=== PATIENT | female | born 1935 | race Two or more races ===

== ENCOUNTER 2017-08-02 10:39 | Inpatient (IN) | payer MEDICARE, BC ==
[2017-08-02] MEDS: VANCOMYCIN 1 GM (PMX) 250 ML IVPB (12:22)
[2017-08-02] MEDS: SODIUM CHLORIDE 0.9% 1L BAG IV* (13:28)
[2017-08-02] MEDS: morphine 2 MG INJ IV (13:28)
[2017-08-02] MEDS: PIPER-TAZO 3.375 GM IV (PMX) 50 ML IVPB (13:28)
[2017-08-02] MEDS: ONDANSETRON 4 MG INJ IV ×2 (13:28→14:32)
[2017-08-02 13:30] LABS: ADD MAN DIFF? NO
[2017-08-02 13:33] LABS: ADD UMIC YES; UR ASCORBIC ACID NEGATIVE (NEGATIVE); UR BACTERIA FEW /HPF (NONE SEEN); UR BILIRUBIN (Dip) NEGATIVE (NEGATIVE); UR BLOOD (Dip) 1+ mg/dL (NEGATIVE); UR CLARITY SLIGHTLY CLOUDY (CLEAR); UR COLOR YELLOW (YELLOW); UR GLUCOSE (Dip) NEGATIVE (NEGATIVE); UR KETONES (Dip) NEGATIVE (NEGATIVE); UR LEUKOCYTE ESTERASE (Dip) NEGATIVE Leu/ul (NEGATIVE); UR NITRITE (Dip) NEGATIVE (NEGATIVE); UR RBC 3 /HPF (0-5); UR SPECIFIC GRAVITY (Dip) 1.012 (1.003-1.030); UR TOTAL PROTEIN (Dip) 3+ mg/dl (NEGATIVE); UR UROBILINOGEN (Dip) NEGATIVE (NEGATIVE); UR WBC 2 /HPF (0-5)
[2017-08-02 13:36] LABS: BASOPHILS % 0.3 % (0.0-2.0); EOSINOPHILS # 0.1 10^3/ul (0.0-0.5); EOSINOPHILS % 0.5 % (0.0-7.0); HEMATOCRIT 24.5 % (37.0-47.0); HEMOGLOBIN 7.6 g/dl (12.0-16.0); LYMPHOCYTES # 0.7 10^3/ul (0.8-2.9); LYMPHOCYTES % 6.5 % (15.0-51.0); MEAN CORPUSCULAR HEMOGLOBIN 21.3 pg (29.0-33.0); MEAN CORPUSCULAR VOLUME 68.8 fl (82.0-101.0); MEAN PLATELET VOLUME 10.1 fl (7.4-10.4); MONOCYTE # 0.7 10^3/ul (0.3-0.9); MONOCYTES % 7.1 % (0.0-11.0); NEUTROPHIL # 8.7 10^3/ul (1.6-7.5); NEUTROPHILS % 84.8 % (39.0-77.0); PLATELET COUNT 179 10^3/UL (140-415); RED BLOOD COUNT 3.56 10^6/ul (4.20-5.40); RED CELL DISTRIBUTION WIDTH 14.8 % (11.5-14.5)
[2017-08-02 13:36] LABS: WHITE BLOOD COUNT 10.2 10^3/ul (4.8-10.8)
[2017-08-02 13:53] LABS: LACTIC ACID 1.2 mmol/L (0.5-2.0)
[2017-08-02 13:55] LABS: ALANINE AMINOTRANSFERASE 46 IU/L (13-69); ALBUMIN 3.4 g/dl (3.3-4.9); ALBUMIN/GLOBULIN RATIO 0.91; ALKALINE PHOSPHATASE 195 IU/L (42-121); AMYLASE 76 U/L (11-123); ANION GAP 13 (8-16); ASPARTATE AMINO TRANSFERASE 30 IU/L (15-46); BILIRUBIN,INDIRECT 0.3 mg/dl (0-1.1); BILIRUBIN,TOTAL 0.3 mg/dl (0.2-1.3); BLOOD UREA NITROGEN 37 mg/dl (7-20); CALCIUM 9.2 mg/dl (8.4-10.2); CARBON DIOXIDE 22 mmol/L (21-31); CHLORIDE 107 mmol/L (97-110); CREATININE 1.73 mg/dl (0.44-1.00); GLUCOSE 143 mg/dl (70-220); LIPASE 157 U/L (23-300); POTASSIUM 4.1 mmol/L (3.5-5.1); SODIUM 138 mmol/L (135-144); TOTAL PROTEIN 7.1 g/dl (6.1-8.1)
[2017-08-02 14:06] LABS: TROPONIN-I 0.035 ng/ml (0.00-0.12)
[2017-08-02] MEDS: SOD CHLORIDE 0.9% 1,000 ML IV (14:12)
[2017-08-02] MEDS ORDERED: SOD CHLORIDE 0.9% 100 ML (14:13)
[2017-08-02] MEDS ORDERED: IODIXANOL LOCM 100 ML BTL (14:13)
[2017-08-02] MEDS: HYDROmorphONE 1 MG/ML SYG IV (14:32)
[2017-08-02 14:45] LABS: IRON < 10 ug/dl (35-150)
[2017-08-02 14:54] LABS: TOTAL IRON BINDING CAPACITY 240 ug/dl (241-421)
[2017-08-02] MEDS ORDERED: ACETAMINOPHEN 325 MG TAB PO (16:00)
[2017-08-02] MEDS ORDERED: ONDANSETRON 4 MG INJ IV ×2 (16:00→17:00)
[2017-08-02] MEDS: AMLODIPINE 5 MG TAB PO (16:30)
[2017-08-02] MEDS ORDERED: VANCOMYCIN IV PER PHARMACY XX (17:00)
[2017-08-02] MEDS: LORAZEPAM 2 MG INJ IV (17:06)
[2017-08-02 17:45] LABS: IMMEDIATE SPIN CROSSMATCH 1 2
[2017-08-02] MEDS: FUROSEMIDE 20 MG INJ IV (20:31)
[2017-08-02] MEDS: hydrALAzine 20 MG INJ IV (21:19)
[2017-08-02] MEDS ORDERED: hydrALAzine 20 MG INJ IV (21:30)
[2017-08-03] MEDS: ATORVASTATIN 20 MG TAB PO ×2 (00:34→21:20)
[2017-08-03] MEDS: SOD CHLORIDE 0.9% 1,000 ML IV (00:56)
[2017-08-03] MEDS: AMPICILLIN/SULB 1.5GM/NS (PMX) 50 ML IVPB ×3 (01:01→21:21)
[2017-08-03] MEDS: hydrALAzine 20 MG INJ IV ×3 (03:32→21:29)
[2017-08-03] MEDS ORDERED: CEFAZOLIN 1 GM INJ (07:26)
[2017-08-03] MEDS: PANTOPRAZOLE (EC) 40 MG TAB PO (07:30)
[2017-08-03] MEDS: AMLODIPINE 5 MG TAB PO ×3 (08:18→21:26)
[2017-08-03] MEDS: EZETIMIBE 10 MG TAB PO (08:18)
[2017-08-03] MEDS: ASPIRIN (EC) 81 MG TAB PO ×2 (08:18→12:03)
[2017-08-03 08:42] LABS: ADD MAN DIFF? NO
[2017-08-03 08:54] LABS: BASOPHIL # 0.1 10^3/ul (0.0-0.1); BASOPHILS % 0.5 % (0.0-2.0); EOSINOPHILS # 0.1 10^3/ul (0.0-0.5); HEMATOCRIT 27.5 % (37.0-47.0); HEMOGLOBIN 8.7 g/dl (12.0-16.0); LYMPHOCYTES # 0.7 10^3/ul (0.8-2.9); LYMPHOCYTES % 6.9 % (15.0-51.0); MEAN CORPUSCULAR HEMOGLOBIN 22.4 pg (29.0-33.0); MEAN CORPUSCULAR HGB CONC 31.6 g/dl (32.0-37.0); MEAN CORPUSCULAR VOLUME 70.9 fl (82.0-101.0); MEAN PLATELET VOLUME 10.3 fl (7.4-10.4); MONOCYTE # 0.6 10^3/ul (0.3-0.9); MONOCYTES % 6.5 % (0.0-11.0); NEUTROPHIL # 8.4 10^3/ul (1.6-7.5); NEUTROPHILS % 84.3 % (39.0-77.0); PLATELET COUNT 184 10^3/UL (140-415); RED BLOOD COUNT 3.88 10^6/ul (4.20-5.40); RED CELL DISTRIBUTION WIDTH 15.9 % (11.5-14.5)
[2017-08-03 08:54] LABS: WHITE BLOOD COUNT 9.9 10^3/ul (4.8-10.8)
[2017-08-03] MEDS ORDERED: FUROSEMIDE 20 MG TAB PO (09:00)
[2017-08-03] MEDS ORDERED: HEPARIN 1000 UNITS/ML 10 ML INJ (09:06)
[2017-08-03] MEDS ORDERED: GELATIN SIZE 100 SPONGE (09:06)
[2017-08-03] MEDS ORDERED: THROMBIN 5000 UNIT VIAL (09:06)
[2017-08-03 09:14] LABS: ANION GAP 13 (8-16); BLOOD UREA NITROGEN 32 mg/dl (7-20); CALCIUM 8.9 mg/dl (8.4-10.2); CARBON DIOXIDE 20 mmol/L (21-31); CHLORIDE 113 mmol/L (97-110); CREATININE 1.64 mg/dl (0.44-1.00); GLUCOSE 100 mg/dl (70-220); MAGNESIUM 1.7 mg/dl (1.7-2.5); POTASSIUM 4.1 mmol/L (3.5-5.1); SODIUM 142 mmol/L (135-144)
[2017-08-03] MEDS ORDERED: MIDAZOLAM 1 MG/ML 2 ML INJ (10:07)
[2017-08-03] MEDS ORDERED: ROCURONIUM 50 MG INJ (10:07)
[2017-08-03] MEDS ORDERED: NEOSTIGMINE 3 MG/3 ML SYRINGE (10:07)
[2017-08-03] MEDS ORDERED: GLYCOPYRROLATE 0.4 MG INJ (10:07)
[2017-08-03] MEDS ORDERED: FENTAnyl 50 MCG/ML VIAL (10:07)
[2017-08-03] MEDS: VANCOMYCIN 1 GM INJ (10:44)
[2017-08-03] MEDS: LIDOCAINE 1% (MPF) 30 ML INJ (10:44)
[2017-08-03] MEDS: BUPIVACAINE 0.5% (SDV) 30 ML INJ (10:44)
[2017-08-03] MEDS ORDERED: ONDANSETRON 4 MG INJ IV (11:30)
[2017-08-03] MEDS ORDERED: DIPHENHYDRAMINE 50 MG INJ IV (11:30)
[2017-08-03] MEDS ORDERED: hydrALAzine 20 MG INJ IV (11:30)
[2017-08-03] MEDS ORDERED: morphine (1 MG/ML) 10ML SYRINGE IV ×3 (11:30)
[2017-08-03] MEDS ORDERED: MEPERIDINE 25 MG INJ IV (11:30)
[2017-08-03] MEDS ORDERED: LABETALOL HCL 20MG INJ IV (11:30)
[2017-08-03] MEDS ORDERED: FENTAnyl 50 MCG/ML VIAL IV ×2 (11:30)
[2017-08-03] MEDS ORDERED: ATROPINE 1 MG/10 ML SYRINGE IV (11:30)
[2017-08-03] MEDS ORDERED: MIDAZOLAM 1 MG/ML 2 ML INJ IV (11:30)
[2017-08-03] MEDS ORDERED: HYDROmorphONE (0.2 MG/ML) 10ML SYG IV ×3 (11:30)
[2017-08-03] MEDS ORDERED: EPHEDrine SULFATE 50 MG/5 ML SYG IV (11:30)
[2017-08-03] MEDS ORDERED: OXYCODONE/ACETAMINOPHEN (5/325) TAB PO ×2 (11:30)
[2017-08-03] MEDS: VANCOMYCIN 750 MG in DEXTROSE 5% 150 ML IVPB (12:02)
[2017-08-03] MEDS ORDERED: SOD FERRIC GLUC COMPLX 125 MG in SOD CHLORIDE 0.9% 100 ML IVPB (13:30)
[2017-08-03] MEDS: SOD FERRIC GLUC COMPLX 125 MG in SOD CHLORIDE 0.9% 100 ML IVPB (14:47)
[2017-08-03] MEDS: CEFTRIAXONE 1 GM/50 ML (PMX) 50 ML IVPB (17:02)
[2017-08-04] MEDS: hydrALAzine 20 MG INJ IV (05:45)
[2017-08-04 07:23] LABS: ADD MAN DIFF? NO
[2017-08-04] MEDS: PANTOPRAZOLE (EC) 40 MG TAB PO (07:30)
[2017-08-04 07:41] LABS: HEMOGLOBIN A1C 5.9 % (0-5.9)
[2017-08-04 07:56] LABS: ANION GAP 13 (8-16); BLOOD UREA NITROGEN 30 mg/dl (7-20); CALCIUM 8.9 mg/dl (8.4-10.2); CARBON DIOXIDE 24 mmol/L (21-31); CHLORIDE 110 mmol/L (97-110); GLUCOSE 103 mg/dl (70-220); POTASSIUM 4.5 mmol/L (3.5-5.1); SODIUM 142 mmol/L (135-144)
[2017-08-04 10:01] LABS: WHITE BLOOD COUNT 9.1 10^3/ul (4.8-10.8)
[2017-08-04 10:01] LABS: BASOPHIL # 0.1 10^3/ul (0.0-0.1); BASOPHILS % 0.7 % (0.0-2.0); EOSINOPHILS # 0.2 10^3/ul (0.0-0.5); EOSINOPHILS % 2.2 % (0.0-7.0); HEMATOCRIT 27.4 % (37.0-47.0); HEMOGLOBIN 8.5 g/dl (12.0-16.0); LYMPHOCYTES % 10.7 % (15.0-51.0); MEAN CORPUSCULAR HEMOGLOBIN 21.7 pg (29.0-33.0); MEAN CORPUSCULAR VOLUME 70.1 fl (82.0-101.0); MEAN PLATELET VOLUME 10.5 fl (7.4-10.4); MONOCYTE # 0.7 10^3/ul (0.3-0.9); MONOCYTES % 8.1 % (0.0-11.0); NEUTROPHILS % 77.1 % (39.0-77.0); PLATELET COUNT 218 10^3/UL (140-415); RED BLOOD COUNT 3.91 10^6/ul (4.20-5.40); RED CELL DISTRIBUTION WIDTH 16.1 % (11.5-14.5)
[2017-08-04] MEDS: SOD CHLORIDE 0.9% 250 ML IV* (10:51)
[2017-08-04] MEDS: ASPIRIN (EC) 81 MG TAB PO (10:52)
[2017-08-04] MEDS: EZETIMIBE 10 MG TAB PO (10:52)
[2017-08-04] MEDS: SOD FERRIC GLUC COMPLX 125 MG in SOD CHLORIDE 0.9% 100 ML IVPB (10:53)
[2017-08-04] MEDS: AMLODIPINE 5 MG TAB PO ×2 (10:53→19:52)
[2017-08-04] MEDS: AMPICILLIN/SULB 1.5GM/NS (PMX) 50 ML IVPB (10:58)
[2017-08-04] MEDS: DOCUSATE SODIUM 100 MG CAP PO ×2 (12:23→20:51)
[2017-08-04] MEDS: CEFTRIAXONE 1 GM/50 ML (PMX) 50 ML IVPB (14:56)
[2017-08-04 15:32] LABS: TRANSFERRIN 186 mg/dL (188-341)
[2017-08-04] MEDS: HYDROCODONE/APAP (5/325) TAB PO (19:52)
[2017-08-04] MEDS: ATORVASTATIN 20 MG TAB PO (20:51)
[2017-08-04] MEDS: VANCOMYCIN 750 MG in DEXTROSE 5% 150 ML IVPB (21:45)
[2017-08-05] MEDS: HYDROCODONE/APAP (5/325) TAB PO (04:24)
[2017-08-05] MEDS: hydrALAzine 20 MG INJ IV (04:38)
[2017-08-05] MEDS: PANTOPRAZOLE (EC) 40 MG TAB PO (06:47)
[2017-08-05] MEDS: DOCUSATE SODIUM 100 MG CAP PO ×2 (08:12→08:15)
[2017-08-05] MEDS: EZETIMIBE 10 MG TAB PO (08:12)
[2017-08-05] MEDS: ASPIRIN (EC) 81 MG TAB PO (08:12)
[2017-08-05] MEDS: AMLODIPINE 5 MG TAB PO (08:12)
[2017-08-05] MEDS ORDERED: INFLUENZA VIRUS VACCINE 0.5 ML (DISPENSING) IM* (09:00)
[2017-08-05 09:02] LABS: ADD MAN DIFF? NO; BASOPHIL # 0.1 10^3/ul (0.0-0.1); BASOPHILS % 0.6 % (0.0-2.0); EOSINOPHILS # 0.3 10^3/ul (0.0-0.5); EOSINOPHILS % 3.4 % (0.0-7.0); HEMATOCRIT 28.2 % (37.0-47.0); HEMOGLOBIN 8.7 g/dl (12.0-16.0); LYMPHOCYTES % 12.4 % (15.0-51.0); MEAN CORPUSCULAR HEMOGLOBIN 21.9 pg (29.0-33.0); MEAN CORPUSCULAR HGB CONC 30.9 g/dl (32.0-37.0); MEAN PLATELET VOLUME 9.7 fl (7.4-10.4); MONOCYTE # 0.6 10^3/ul (0.3-0.9); NEUTROPHIL # 5.9 10^3/ul (1.6-7.5); NEUTROPHILS % 73.6 % (39.0-77.0); PLATELET COUNT 222 10^3/UL (140-415); RED BLOOD COUNT 3.97 10^6/ul (4.20-5.40); RED CELL DISTRIBUTION WIDTH 16.1 % (11.5-14.5)
[2017-08-05] MEDS: SOD FERRIC GLUC COMPLX 125 MG in SOD CHLORIDE 0.9% 100 ML IVPB (09:27)
[2017-08-05 09:40] LABS: ANION GAP 16 (8-16); BLOOD UREA NITROGEN 26 mg/dl (7-20); CARBON DIOXIDE 22 mmol/L (21-31); CHLORIDE 108 mmol/L (97-110); CREATININE 1.48 mg/dl (0.44-1.00); GLUCOSE 135 mg/dl (70-220); POTASSIUM 3.7 mmol/L (3.5-5.1); SODIUM 142 mmol/L (135-144)
[2017-08-05] MEDS: morphine 2 MG INJ IV (10:12)
[2017-08-05] MEDS: POTASSIUM CHLORIDE (SR) 20 MEQ TAB PO (12:49)
[2017-08-05] MEDS: FUROSEMIDE 20 MG TAB PO (13:00)
[2017-08-05] MEDS: CEFTRIAXONE 1 GM/50 ML (PMX) 50 ML IVPB (14:30)
[2017-08-05] MEDS ORDERED: VANCOMYCIN 500MG/NS (PMX) 100 ML IVPB (22:00)
== END 2017-08-05 19:03 | disposition home health service (06) | DRG 580 ==
LOC: MS4 16:02 → E/R 10:39
PROC: 0KBR0ZZ Excision of Left Upper Leg Muscle, Open Approach (ICD-10-PCS; principal; 2017-08-03 09:00)
PROC: 0J9C0ZZ Drainage of Pelvic Region Subcutaneous Tissue and Fascia, Open Approach (ICD-10-PCS; 2017-08-03 09:00)
PROC: 30233N1 Transfusion of Nonautologous Red Blood Cells into Peripheral Vein, Percutaneous Approach (ICD-10-PCS; 2017-08-03 09:00)
DX: L03.314 Cellulitis of groin (principal); N39.0 Urinary tract infection, site not specified; I13.0 Hypertensive heart and chronic kidney disease with heart failure and stage 1 through stage 4 chronic kidney disease, or unspecified chronic kidney disease; I50.30 Unspecified diastolic (congestive) heart failure; D50.0 Iron deficiency anemia secondary to blood loss (chronic); D50.9 Iron deficiency anemia, unspecified; Z95.2 Presence of prosthetic heart valve; E78.5 Hyperlipidemia, unspecified; K21.9 Gastro-esophageal reflux disease without esophagitis; I70.203 Unspecified atherosclerosis of native arteries of extremities, bilateral legs; B96.20 Unspecified Escherichia coli [E. coli] as the cause of diseases classified elsewhere; N18.3 Chronic kidney disease, stage 3 (moderate)
CPT/HCPCS: 36430; 74176; 80048; 80053; 81001; 82150; 82728; 82962; 83036; 83540; 83605; 83690; 83735; 84466; 84484; 85025; 86850; 86900; 86901; 86920; 87040; 87070; 87075; 87086; 87102; 87116; 90686; 93005; 93306; 93926; 96374; 96375; 96376; 97163; 99285-25; J1940